=== PATIENT | male | born 1985 | race Native Hawaiian/Other Pacific Islander ===

== ENCOUNTER 2017-05-01 09:22 | Outpatient (CLI) | payer BC ==
[~2017-05-01 09:22] MED LIST: ASPIR-8181 MG OR; ENDOCET1 TA3 PO; METO50TA63 PO
[2017-05-01 10:07] LABS: PLATELET COUNT 233 K/uL (142-355)
[2017-05-01 10:17] LABS: POTASSIUM 3.5 mmol/L (3.6-5.2); SODIUM 138 mmol/L (136-145)
== END 2017-05-01 10:30 | disposition home or self-care (01) ==
LOC: LABW 09:22 → RAD 09:22 → LABW 10:30
DX: M31.6 Other giant cell arteritis (principal); F17.210 Nicotine dependence, cigarettes, uncomplicated
CPT/HCPCS: 36415; 80053; 85027; 85651; 87040

== ENCOUNTER 2017-05-04 21:21 | Emergency (ER) | payer BC ==
[~2017-05-04] VITALS: Ht 170.2 cm; Wt 80.7 kg
[2017-05-04 22:31] LABS: PLATELET COUNT 239 K/uL (142-355)
[2017-05-04 22:42] LABS: POTASSIUM 3.9 mmol/L (3.6-5.2); SODIUM 136 mmol/L (136-145)
[2017-05-05 00:51] VITALS: BP 127/88; TEMP 97.9
== END 2017-05-05 00:52 | disposition home or self-care (01) ==
LOC: ED 21:21
PROVIDERS: Emergency Medicine
DX: R51 Headache (principal)
CPT/HCPCS: 36415; 80053; 80307; 81000; 83605; 85027; 85651; 96374; 96375; 99284; G0479; J1885; J2270; J2405

== ENCOUNTER 2019-05-16 07:11 | Day surgery (SDC) | payer BC ==
[2019-05-16 07:49] LABS: PLATELET COUNT 205 K/uL (142-355)
[2019-05-16 08:00] LABS: POTASSIUM 4.1 mmol/L (3.6-5.2)
== END 2019-05-16 09:15 | disposition home or self-care (01) ==
LOC: OR 07:11
PROVIDERS: Internal Medicine
PROC: 0DB68ZZ Excision of Stomach, Via Natural or Artificial Opening Endoscopic (ICD-10-PCS; principal; 2019-05-16)
DX: R10.13 Epigastric pain (principal); K44.9 Diaphragmatic hernia without obstruction or gangrene; K31.7 Polyp of stomach and duodenum; K29.50 Unspecified chronic gastritis without bleeding
CPT/HCPCS: 80053; 85027

== ENCOUNTER 2019-05-24 11:00 | Outpatient (CLI) | payer OTHER | END 2019-05-24 23:51 | disposition home or self-care (01) | LOC: RAD 11:00 | DX: M54.89 Other dorsalgia (principal); M54.2 Cervicalgia; R22.1 Localized swelling, mass and lump, neck; V89.2XXS Person injured in unspecified motor-vehicle accident, traffic, sequela ==

== ENCOUNTER 2019-06-04 08:29 | Outpatient (CLI) | payer OTHER | END 2019-06-04 23:40 | disposition home or self-care (01) | LOC: MRI 08:29 | DX: M54.5 Low back pain (principal); V89.2XXS Person injured in unspecified motor-vehicle accident, traffic, sequela ==

== ENCOUNTER 2019-07-25 10:58 | Outpatient (CLI) | payer BC | END 2019-07-25 19:57 | disposition home or self-care (01) | LOC: CT 10:58 | DX: M54.5 Low back pain (principal) ==

== ENCOUNTER 2019-08-23 08:26 | Outpatient (CLI) | payer BC | END 2019-08-23 21:26 | disposition home or self-care (01) | LOC: MRI 08:26 | DX: M54.2 Cervicalgia (principal) ==

== ENCOUNTER 2020-12-18 13:59 | Outpatient (CLI) | payer OTHER ==
[2020-12-18 14:31] LABS: PLATELET COUNT 208 K/uL (142-355)
[2020-12-18 14:43] LABS: POTASSIUM 4.7 mmol/L (3.6-5.2)
== END 2020-12-18 21:53 | disposition home or self-care (01) ==
LOC: LAB 13:59
PROVIDERS: ATTEND Internal Medicine
DX: I10 Essential (primary) hypertension (principal); H53.8 Other visual disturbances; R53.83 Other fatigue; T14.8XXD Other injury of unspecified body region, subsequent encounter; R68.2 Dry mouth, unspecified; Z79.899 Other long term (current) drug therapy
CPT/HCPCS: 80053; 80061; 83036; 84443; 85027

== ENCOUNTER 2021-01-13 18:49 | Emergency (ER) | payer OTHER ==
[~2021-01-13] VITALS: Ht 170.2 cm; Wt 86.2 kg
[2021-01-13 21:35] VITALS: BP 140/92; TEMP 99.4
== END 2021-01-13 21:35 | disposition home or self-care (01) ==
LOC: ED 18:49
DX: M79.18 Myalgia, other site (principal); V58.0XXA Driver of pick-up truck or van injured in noncollision transport accident in nontraffic accident, initial encounter; Y92.89 Other specified places as the place of occurrence of the external cause
CPT/HCPCS: 80307; 80320; 81000; 96372; 99283; J1885